=== PATIENT | female | born 1980 | race African-American/Black ===

== ENCOUNTER 2020-01-10 20:38 | Emergency (ER) | payer OTHER ==
[2020-01-10 20:49] VITALS: BP 158/90; PULSE 92; TEMP 98.5; BMI 45.9
[2020-01-10] MEDS ORDERED: KETOROLAC TROMETHAMINE 15 MG/ML VIAL IVPUSH ONE (21:06)
[2020-01-10] MEDS ORDERED: SODIUM CHLORIDE 0.9% 500 ML INFUS.BAG IV ONE (21:21)
[2020-01-10] MEDS ORDERED: KETOROLAC TROMETHAMINE 15 MG/ML VIAL ONE (21:22)
[2020-01-10 21:27] LABS: HEMATOCRIT 41.3 % (32.4-45.2); HEMOGLOBIN 13.6 GM/dl (10.7-15.3); MCH 28.8 pg (25.7-33.7); MCHC 32.8 g/dl (32.0-36.0); MEAN CELL VOLUME 87.5 fl (80-96); MEAN PLT VOLUME 10.5 fl (7.5-11.1); PLATELET COUNT 325 K/MM3 (134-434); RBC 4.72 M/mm3 (3.60-5.2); RDW 13.8 % (11.6-15.6)
[2020-01-10 21:42] LABS: PLATELET ESTIMATE ADEQUATE
--- NOTE | 2020-01-10 22:02 | PDOC ---
Documentation entered by Manolo Chris SCRIBE, acting as scribe for Beverly Carrillo MD. Beverly Carrillo MD: This documentation has been prepared by the Dot vazquez Angel, SCRIBE, under my direction and personally reviewed by me in its entirety. I confirm that the documentation accurately reflects all work, treatment, procedures, and medical decision making performed by me. History of Present Illness - General Chief Complaint: Pain, Acute Stated Complaint: PELVIC PAIN,VAGINAL BLEEDING Time Seen by Provider: 01/10/20 20:41 History Source: Patient Exam Limitations: No Limitations - History of Present Illness Initial Comments: 01/10/20 21:33 The patient is a 39 year old female with a significant past medical history of high blood pressure, uterine fibroids who presents to the ED with b/l pelvic pain and heavy vaginal bleeding since yesterday. The patient states the pelvic pain started yesterday with no bleeding until today when the pain worsened and her vaginal bleeding started. pt attributed the VB to the start of her period to day, which is usually irregular and heavy.. The patient states she has been bleeding unusually heavy for her. The patient states she feels lazy as she has experienced nausea but no vomiting. Patient denies SOB, fever/chills, change in frequency or any other symptoms. no abdominal pain. no headache/dizziness, syncope denies trauma or intercourse, monogamous with her . denies history of vaginal discharge, odor, urinary frequency or urgency. no back pain. denies . (G4, P1, A3) LMP: Started today 01/10/20 21:57 Past History - Past Medical History Allergies/Adverse Reactions: Allergies Allergy/AdvReac Type Severity Reaction Status Date / Time No Known Allergies Allergy Verified 01/10/20 20:40 Home Medications: Ambulatory Orders Labetalol HCl 100 mg PO HS 01/10/20 Ibuprofen 600 mg PO QID PRN #20 tablet 01/11/20 Oxycodone HCl 10 mg PO QID PRN #12 tablet MDD 4 01/11/20 Anemia: No Asthma: No Cancer: No Cardiac Disorders: No CVA: No COPD: No CHF: No Dementia: No Diabetes: No GI Disorders: No Disorders: No HTN: Yes Hypercholesterolemia: No Liver Disease: No Seizures: No Thyroid Disease: No Other medical history: ENDOMETRIOSIS - Surgical History Abdominal Surgery: No Appendectomy: Yes Cardiac Surgery: No Cholecystectomy: No Lung Surgery: No Neurologic Surgery: No Orthopedic Surgery: No - Reproductive History Spontaneous : 1 - Psycho Social/Smoking Cessation Hx Smoking Status: Yes Smoking History: Never smoked Have you smoked in the past 12 months: No Number of Cigarettes Smoked Daily: 0 Information on smoking cessation initiated: No Hx Alcohol Use: No Drug/Substance Use Hx: No Substance Use Type: None Review of Systems - Review of Systems Able to Perform ROS?: Yes Comments:: 01/10/20 21:34 Constitutional: no fevers or chills. No weakness HEENT: no headache or dizziness. No congestion. No visual/hearing disturbances. CVS: no cp or syncope. Resp: no sob. No cough. Gastrointestinal: no abdominal pain, vomiting, diarrhea. +nausea Genitourinary: ++ Pelvic pain. +vaginal bleeding. no urinary sx, hematuria. no urgency or dysuria or frequency. no malodor. MUSCULOSKELETAL: No joint pain and swelling. No neck or back pain. SKIN: no redness or skin changes, no discharge, no rash. No wounds. Hematologic: no easy bruising/bleeding. NEUROLOGIC: No headache, dizziness, LOC or altered mental status. No weakness, numbness or tingling. Psych: no anxiety or depression Allergic/Immunologic: no allergies All other systems reviewed and negative, or as documented in HPI. 01/10/20 21:48 01/10/20 21:59 *Physical Exam - Vital Signs Last Vital Signs Temp Pulse Resp BP Pulse Ox 98.5 F 92 H 18 158/90 99 01/10/20 20:43 01/10/20 20:43 01/10/20 20:43 01/10/20 20:43 01/10/20 20:43 - Physical Exam 01/10/20 21:34 General: Well appearing, awake and alert, NAD. HEENT: NCAT, PERRL, EOMI, clear conjunctiva, anicteric, moist mucus membranes, clear oropharynx, no oral lesions.. Neck: neck supple, FROM Resp: CTAB, normal and even respirations, no respiratory distress CVS: RRR, no murmurs, 2+ peripheral pulses throughout, no peripheral edema Abdomen: soft, NTND, no rebound or guarding. No CVAT. : normal external genitalia, no lesions, blood in vaginal vault, tampon visible. no CMT, no adnexal tenderness. Smooth and pink cervix, closed. Back: nontender, normal inspection and ROM MSK: no edema, RENEE x4, ROM intact. No clubbing or cyanosis. normal bulk and tone. Extremities: no calf tenderness Neuro: alert, oriented appropriately; no focal neurologic deficits Psych: Calm and cooperative Skin: warm and well perfused, cap refill <2 sec, normal color 01/10/20 21:56 ED Treatment Course - LABORATORY CBC & Chemistry Diagram: 01/10/20 21:15 Medical Decision Making - Medical Decision Making 01/10/20 22:00 Vital Signs Temp Pulse Resp BP Pulse Ox 98.5 F 92 H 18 158/90 99 01/10/20 20:43 01/10/20 20:43 01/10/20 20:43 01/10/20 20:43 01/10/20 20:43 DDx female abdominal pain/VB: ovarian cyst, ovarian torsion, TOA, appy, UTI, pyelonephritis, STD/PID, Mittelschmerz, anemia, electrolyte/metabolic derangements, DUB VS wnl, normotensive, no tachy or hypoxia/respiratory distress. abdomen benign on reeval and no peritoneal findings, VB here, controlled no abdominal tenderness, benign exam. pelvic exam also unremarkable, +VB in the vault without adnexal tenderness.. doubt appy Laboratory results are within normal limits, Negative test No evidence of infection on urinalysis preliminarily, blood likely from the vaginal bleeding. H/H is stable. Transvaginal ultrasound reveals echogenic material within the endometrial cavity and lower uterine segment consistent with her current menses and blood clots. There is a large complex right-sided ovarian cyst measuring 5.8 x 3.6 cm. Follow-up ultrasound in the next menstrual cycle was required. Bilateral peripheral vascular flow is noted, no evidence of torsion. No free fluid in the cul-de-sac In light of her normal pelvic exam, unlikely to be ovarian torsion sx more likely with c/w her heavy menses/menorrhagia. 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 will need to be seen as outpatient, call tomorrow for appt, to followup on the complex cyst pelvic rest, analgesia, supportive care. Will discharge patient with a short course of opiates. Went over the risks of the medication. Advised patient to not mix with other products containing acetaminophen, to not combine with alcohol, or other illicit drugs, to not drive or operate machinery, and to refrain from any activity that will require complete attention while taking this medication. Dispo: OB-[employer] waste land[employer] technician followup, with [facility] clinic. bleeding precautions; return to ED if persistent and heavy vaginal bleeding, persistent pelvic pain not relieved by your prescribed medications, dizziness, shortness of breath, new and persistent fevers, other foul smelling discolored vaginal discharge, or for any other concerns. 01/11/20 00:16 01/11/20 00:31 01/11/20 00:33 Discharge - Discharge Information Problems reviewed: Yes Clinical Impression/Diagnosis: Ovarian cyst, right, Vaginal bleeding, Dysfunctional uterine bleeding Condition: Stable Disposition: HOME - Admission No - Additional Discharge Information Prescriptions: Ibuprofen 600 mg PO QID PRN #20 tablet PRN Reason: Moderate Pain Oxycodone HCl 10 mg PO QID PRN #12 tablet MDD 4 PRN Reason: Severe Pain - Follow up/Referral Referrals: Alexis Orourke MD [Staff Physician] - Carissa Jennings MD [Staff Physician] - - Patient Discharge Instructions Patient Printed Discharge Instructions: DI for Ovarian Cyst, DI for Vaginal Bleeding Additional Instructions: 1) Please follow-up with your primary care doctor/[facility] at [address] [place] [address] in the next 1-2 days. Please call tomorrow for for any urgent issues. 2) You were given a copy of the tests performed today. Please bring the results with you and review them with your primary care doctor. Your laboratory / imaging results revealed a large right sided ovarian cyst with thickened endometrium from the bleeding; there does not appear to be torsion (or twisting) blood work is normal, urine testing negative 3) If you have any worsening of symptoms or any other concerns please return to the ED immediately. Return if worsening symptoms including fevers, headache, vomiting, visual or hearing disturbances, abdominal pain, chest pain, shortness of breath, syncope, dehydration, inability to take things by mouth/vomiting, altered mental status, worsening abdominal pain/vaginal bleeding, or worsening concerning symptoms. 4) Please continue taking your home medications as directed. side effects may include upset stomach, abdominal pain, vomiting, or diarrhea. do not drink alcohol with your medications. Please take IBUPROFEN (aka MOTRIN, ADVIL, ALEVE) 400 mg and/or ACETAMINOPHEN (aka Tylenol) 650-975 mg every 6 hours, as needed, for pain. Please do not take these medications if you have a bleeding disorder, stomach or GI ulcer problems or liver disease. Please take one tablet of OXYCODONE every 6 hours, as needed for SEVERE pain. Please do not take this medication unless you absolutely need it, it is very addictive. Please do not drive, operate heavy machinery or make important decisions while on this medication, it can cloud your judgement. this can also cause constipation so make sure to stay hydrated and use stool softener as nee ded. Stay well hydrated and rest adequately. Make an appointment. If you cannot follow-up with your primary care doctor please return to the ED - Post Discharge Activity Work/Back to School Note: Back to Work
[2020-01-11] MEDS ORDERED: oxyCODONE HCL 5 MG TABLET PO ONE (00:20)
[2020-01-11] MEDS ORDERED: oxyCODONE HCL 5 MG TABLET ONE (00:22)
== END 2020-01-11 00:27 | disposition home or self-care (01) ==
LOC: FER 20:38
PROC: 3E0333Z Introduction of Anti-inflammatory into Peripheral Vein, Percutaneous Approach (ICD-10-PCS; principal; 2020-01-10)
PROC: 3E0337Z Introduction of Electrolytic and Water Balance Substance into Peripheral Vein, Percutaneous Approach (ICD-10-PCS; 2020-01-10)
DX: N93.9 Abnormal uterine and vaginal bleeding, unspecified (principal); N93.8 Other specified abnormal uterine and vaginal bleeding; N83.209 Unspecified ovarian cyst, unspecified side
CPT/HCPCS: 36415; 76830-TC; 81003; 81015; 84703; 85025; 87086; 99285-25